=== PATIENT | male | born 1950 | race Caucasian/White ===

== ENCOUNTER → 2016-12-03 | Outpatient (CLI) | payer MEDICARE, BC, OTHER ==
[~2016-12-03] VITALS: Ht 170.2 cm; Wt 93.0 kg
[~2016-12-03] MED LIST: GLUC500C5 PO; LIDOCAINE 2% INJ 100 MG/5 ML SDV (FOR ANES.) As Ordered ONE; LIVA4TAB PO; MULTTAB PO; NS 1,000 ML IV SCH; OMEP40CA2 PO; PROPOFOL 200 MG/20 ML VIAL As Ordered ONE; VITA100037 PO; [UNRECOGNIZED DRUG - CODE] PO
--- NOTE | 2016-12-03 12:28 | ROOR ---
Patient Name: Kaushal Belcher Procedure Date: 12/03/2016 12:07 PM Date of : 1950 Age: 66 Room: [facility] Gender: Male Note Status: Finalized Procedure: Upper GI endoscopy + Biopsies Indications: Follow-up of Meza's esophagus Providers: Dung Hobbs MD Referring MD: Maegan Villafuerte MD Requesting Provider: Medicines: Monitored Anesthesia Care Complications: No immediate complications. Procedure: Pre-Anesthesia Assessment: - The heart rate, respiratory rate, oxygen saturations, blood pressure, adequacy of pulmonary ventilation, and response to care were monitored throughout the procedure. The Endoscope was introduced through the mouth, and advanced to the second part of duodenum. The upper GI endoscopy was accomplished without difficulty. The patient tolerated the procedure well. Findings: The Z-line was variable and was found 37 cm from the incisors. Multiple biopsies were obtained with cold forceps for evaluation to rule out Meza's Esophagus randomly at the gastroesophageal junction. A medium-sized hiatal hernia was present. No other significant abnormalities were identified in a careful examination of the stomach. The exam of the duodenum was otherwise normal. Impression: - Z-line variable, 37 cm from the incisors. - Medium-sized hiatal hernia. - Multiple biopsies were obtained at the gastroesophageal junction. - The examination was otherwise normal. Recommendation: - Patient has a contact number available for emergencies. The signs and symptoms of potential delayed complications were discussed with the patient. Return to normal activities tomorrow. Written discharge instructions were provided to the patient. - High fiber diet. - Discharge patient to home. - Follow an antireflux regimen. - Continue present medications. - Await pathology results. - Telephone GI clinic for pathology results in 1 week. - Return to referring physician. - The findings and recommendations were discussed with the patient's family. Dung Hobbs MD Dung Hobbs MD 12/03/2016 12:28:08 PM This report has been signed electronically. Number of Addenda: 0 Note Initiated On: 12/03/2016 12:07 PM Estimated Blood Loss: Estimated blood loss: none.
[2016-12-03 12:52] VITALS: BP 138/87
== END ==
LOC: M OPP 11:05
PROVIDERS: ATTEND Internal Medicine Gastroenterology
DX: Z09 Encounter for follow-up examination after completed treatment for conditions other than malignant neoplasm (principal); K22.70 Barrett's esophagus without dysplasia; K22.8 Other specified diseases of esophagus; K44.9 Diaphragmatic hernia without obstruction or gangrene; Z86.010 Personal history of colon polyps; E78.5 Hyperlipidemia, unspecified; K64.8 Other hemorrhoids; Z87.891 Personal history of nicotine dependence; Z79.899 Other long term (current) drug therapy

== ENCOUNTER 2018-05-14 06:34 | Day surgery (SDC) | payer MEDICARE, BC, OTHER ==
[2018-05-14] MEDS ORDERED: LIDOCAINE 2% INJ 100 MG/5 ML SDV (FOR ANES.) As Ordered (06:59)
[2018-05-14] MEDS ORDERED: PROPOFOL 200 MG/20 ML VIAL As Ordered (06:59)
[2018-05-14] MEDS ORDERED: fentaNYL 100 MCG/2 ML INJECTION (J3010) As Ordered (06:59)
[2018-05-14] MEDS: NS 1,000 ML IV (08:34)
== END 2018-05-14 08:35 | disposition home or self-care (01) ==
LOC: M OPP 06:34
DX: Z12.11 Encounter for screening for malignant neoplasm of colon (principal); Z86.010 Personal history of colon polyps; D12.2 Benign neoplasm of ascending colon; K64.0 First degree hemorrhoids; R12 Heartburn; K22.70 Barrett's esophagus without dysplasia; K44.9 Diaphragmatic hernia without obstruction or gangrene; E78.5 Hyperlipidemia, unspecified; K21.9 Gastro-esophageal reflux disease without esophagitis; M19.90 Unspecified osteoarthritis, unspecified site; M54.30 Sciatica, unspecified side; Z87.891 Personal history of nicotine dependence; Z79.899 Other long term (current) drug therapy
CPT/HCPCS: 45385

== ENCOUNTER → 2018-06-26 | Outpatient (REF) | payer MEDICARE, OTHER ==
[2018-06-26 14:19] LABS: PLATELET COUNT, AUTOMATED 217 10^3/uL (150-450)
[2018-06-26 14:29] LABS: INR 0.98; PROTHROMBIN TIME 13.1 SECONDS (12.1-14.4)
[2018-06-26 14:30] LABS: PARTIAL THROMBOPLASTIN TIME 25.7 SECONDS (25.4-37.6)
== END ==
LOC: M LABDRAW1 13:54
DX: Z01.812 Encounter for preprocedural laboratory examination (principal); Z79.01 Long term (current) use of anticoagulants
CPT/HCPCS: 85049

== ENCOUNTER → 2020-07-09 | Outpatient (CLI) | payer MEDICARE, OTHER ==
[~2020-07-09] MED LIST changes: +D31000TA2 PO; +GLUC1CAP10 PO; +IBUP200C25 PO; -LIDOCAINE 2% INJ 100 MG/5 ML SDV (FOR ANES.) As Ordered ONE; +MULT-90 PO; -NS 1,000 ML IV SCH; -OMEP40CA2 PO; +OMEP40CA97 PO; -PROPOFOL 200 MG/20 ML VIAL As Ordered ONE; -VITA100037 PO; +VITA100067 PO; +VITA100T59 PO
== END ==
LOC: M LABSMTC 08:05
PROVIDERS: ATTEND Anesthesiology
DX: Z01.818 Encounter for other preprocedural examination (principal); Z20.828 Contact with and (suspected) exposure to other viral communicable diseases
CPT/HCPCS: C9803; U0003

== ENCOUNTER 2020-07-14 06:21 | Day surgery (SDC) | payer MEDICARE, BC, OTHER ==
[~2020-07-14] VITALS: Ht 170.2 cm; Wt 94.3 kg
[~2020-07-14 06:21] MED LIST changes: +BALANCED SALT IRRIGATION SOLUTION 500ML BAG (FOR OR EYE MACHINE) As Ordered ONE; +DUOVISC (0.50ML VISCOAT/0.55ML PROVISC) OPHTH KIT As Ordered ONE; +POVIDONE-IODINE 5% OPHTH PREP SOL 30ML As Ordered ONE
[2020-07-14] MEDS ORDERED: CEFUROXIME 1MG/0.1ML INTRACAMERAL INJ As Ordered ONE (06:22)
[2020-07-14] MEDS ORDERED: BSS IRR 500ML/OMIDRIA 4ML IRR BAG (OR ONLY) (J1097 PER ML) As Ordered ONE (06:41)
[2020-07-14] MEDS ORDERED: MIDAZOLAM INJ 2MG/2ML VIAL (J2250 PER 1MG) As Ordered ONE (06:55)
[2020-07-14] MEDS ORDERED: fentaNYL 100 MCG/2 ML INJECTION (J3010) As Ordered ONE (06:58)
[2020-07-14] MEDS ORDERED: PHENYLEPHRINE 2.5% OPHTH SOL 2ML OD ONE (07:00)
[2020-07-14] MEDS ORDERED: TROPICAMIDE 1% OPHTH SOLN 2ML OD ONE (07:00)
[2020-07-14] MEDS ORDERED: OFLOXACIN 0.3 % (OCUFLOX) OPTH SOL 5ML OD ONE (07:00)
[2020-07-14] MEDS ORDERED: PROPARACAINE 0.5% OPHTH SOL 15ML OD ONE (07:00)
[2020-07-14] MEDS ORDERED: ACETYLCHOLINE OPHTH SOLN 1% 2ML (MIOCHOL-E) As Ordered ONE (07:11)
[2020-07-14 08:15] VITALS: BP 167/84
== END 2020-07-14 08:55 | disposition home or self-care (01) ==
LOC: M SDC 06:21
PROVIDERS: ATTEND Ophthalmology
DX: H25.11 Age-related nuclear cataract, right eye (principal); E78.5 Hyperlipidemia, unspecified; K21.9 Gastro-esophageal reflux disease without esophagitis; Z87.891 Personal history of nicotine dependence; Z79.899 Other long term (current) drug therapy
CPT/HCPCS: 66984; J2250; J3010; V2632

== ENCOUNTER → 2022-07-05 | Outpatient (CLI) | payer MEDICARE, BC, OTHER ==
[~2022-07-05] MED LIST changes: -BALANCED SALT IRRIGATION SOLUTION 500ML BAG (FOR OR EYE MACHINE) As Ordered ONE; -D31000TA2 PO; -DUOVISC (0.50ML VISCOAT/0.55ML PROVISC) OPHTH KIT As Ordered ONE; +OMEP40CA4 PO; -OMEP40CA97 PO; -POVIDONE-IODINE 5% OPHTH PREP SOL 30ML As Ordered ONE; +VITA100093 PO
[2022-07-05 15:34] LABS: ALBUMIN 3.7 GM/DL (3.2-5.2); BILIRUBIN,TOTAL 0.6 MG/DL (0.2-1.0); CALCIUM LEVEL 9.4 MG/DL (8.8-10.2); CHOLESTEROL RISK RATIO 2.08 (<5); CREATININE FOR GFR 1.34 MG/DL (0.70-1.30); GLOMERULAR FILTRATION RATE 55.8 (>42); POTASSIUM SERUM 4.8 MEQ/L (3.5-5.1); PROSTATIC SPECIFIC AG MONITOR 1.64 NG/ML (< 4.00); TOTAL PROTEIN 8.1 GM/DL (6.4-8.2)
== END ==
LOC: M PLALAB 09:43
PROVIDERS: ATTEND Nurse Practitioner Family
DX: Z00.00 Encounter for general adult medical examination without abnormal findings (principal); E78.2 Mixed hyperlipidemia; R97.20 Elevated prostate specific antigen [PSA]

== ENCOUNTER → 2022-07-25 | Outpatient (REF) | payer MEDICARE, BC, OTHER | LOC: M LAB REF 16:57 | PROVIDERS: ATTEND Nurse Practitioner Family | DX: N39.0 Urinary tract infection, site not specified (principal) ==

== ENCOUNTER → 2023-07-03 | Day surgery (SDC) | payer MEDICARE, BC, OTHER ==
[~2023-07-03] VITALS: Ht 170.2 cm; Wt 91.0 kg
[~2023-07-03] MED LIST changes: +LIDOCAINE 2% 100MG/5ML SDV (FOR ANES.) As Ordered ONE; +NS 1,000 ML IV ONE; +fentaNYL 100 MCG/2 ML INJECTION As Ordered ONE; +propofoL 200 MG/20 ML VIAL As Ordered ONE
[2023-07-04 15:00] VITALS: BP 99/56; TEMP 97.3; O2SAT 94
== END | disposition home or self-care (01) ==
LOC: M OPP 11:57
PROVIDERS: ATTEND Internal Medicine Gastroenterology
DX: Z12.11 Encounter for screening for malignant neoplasm of colon (principal); Z86.010 Personal history of colon polyps; K63.5 Polyp of colon; K64.0 First degree hemorrhoids; K22.89 Other specified disease of esophagus; R12 Heartburn; Z79.1 Long term (current) use of non-steroidal anti-inflammatories (NSAID); Z79.899 Other long term (current) drug therapy
CPT/HCPCS: 43239; 45380; 88305; J3010

== ENCOUNTER → 2023-07-15 | Outpatient (CLI) | payer MEDICARE, BC, OTHER ==
[~2023-07-15] MED LIST changes: -LIDOCAINE 2% 100MG/5ML SDV (FOR ANES.) As Ordered ONE; -NS 1,000 ML IV ONE; -fentaNYL 100 MCG/2 ML INJECTION As Ordered ONE; -propofoL 200 MG/20 ML VIAL As Ordered ONE
[2023-07-15 13:44] LABS: ALBUMIN 3.8 G/DL (3.2-5.2); ALKALINE PHOSPHATASE 57 U/L (46-116); ALT/SGPT 118 U/L (7.0-40); AST/SGOT 67 U/L (<34); BILIRUBIN,TOTAL 0.6 MG/DL (0.3-1.2); BLOOD UREA NITROGEN 17 MG/DL (9-23); CALCIUM LEVEL 9.4 MG/DL (8.3-10.6); CARBON DIOXIDE LEVEL 28 MMOL/L (20-31); CHLORIDE LEVEL 106 MMOL/L (98-107); CHOLESTEROL LEVEL 195 MG/DL (<200); CHOLESTEROL RISK RATIO 2.41 (<5); CREATININE FOR GFR 1.15 MG/DL (0.70-1.30); GLOMERULAR FILTRATION RATE > 60.0 (>42); GLUCOSE, FASTING 103 MG/DL (74-106); HDL CHOLESTEROL 80.6 MG/DL (>40); NON-HDL-C 114.4 MG/DL; POTASSIUM SERUM 4.8 MMOL/L (3.5-5.1); SODIUM LEVEL 143 MMOL/L (136-145); TOTAL PROTEIN 7.6 G/DL (5.7-8.2); TRIGLYCERIDES LEVEL 67 MG/DL (<150)
== END ==
LOC: M PLALAB 09:21
PROVIDERS: ATTEND Nurse Practitioner Family
DX: Z00.00 Encounter for general adult medical examination without abnormal findings (principal); E78.00 Pure hypercholesterolemia, unspecified

== ENCOUNTER → 2023-07-31 | Outpatient (CLI) | payer MEDICARE, BC, OTHER ==
[2023-07-31 14:04] LABS: APPEARANCE, URINE CLEAR (CLEAR); BACTERIA, URINE AUTO NEGATIVE (NEGATIVE); BILIRUBIN, URINE AUTO NEGATIVE (NEGATIVE); BLOOD, URINE BLOOD NEGATIVE (NEGATIVE); COLOR, URINE YELLOW (YELLOW); GLUCOSE, URINE (UA) AUTO NEGATIVE (NEGATIVE); KETONE, URINE AUTO NEGATIVE (NEGATIVE); LEUKOCYTE ESTERASE, URINE AUTO NEGATIVE (NEGATIVE); MUCUS, URINE SMALL (NEGATIVE); NITRITE, URINE AUTO NEGATIVE (NEGATIVE); PROTEIN, URINE AUTO NEGATIVE (NEGATIVE); RBC, URINE AUTO 1 /HPF (0-3); SPECIFIC GRAVITY URINE AUTO 1.015 (1.002-1.035); SQUAMOUS EPITHELIAL CELL UR AU 0 /HPF (0-6); UROBILINOGEN, URINE AUTO 0.2 mg/dL (0.0-2.0); WBC, URINE AUTO 2 /HPF (0-3)
== END ==
LOC: M PLALAB 11:10
PROVIDERS: ATTEND Nurse Practitioner Family
DX: R35.0 Frequency of micturition (principal); Z12.5 Encounter for screening for malignant neoplasm of prostate
CPT/HCPCS: 36415; 81001; 87086; G0103

== ENCOUNTER → 2024-07-16 | Outpatient (CLI) | payer MEDICARE, BC ==
[2024-07-16 13:20] LABS: ALKALINE PHOSPHATASE 62 U/L (40-129); ALT/SGPT 109 U/L (7.0-40); AST/SGOT 56 U/L (<34); BILIRUBIN,TOTAL 0.8 MG/DL (0.3-1.2); BLOOD UREA NITROGEN 18 MG/DL (9-23); CALCIUM LEVEL 10.1 MG/DL (8.3-10.6); CARBON DIOXIDE LEVEL 30 MMOL/L (20-31); CHLORIDE LEVEL 104 MMOL/L (98-107); CHOLESTEROL LEVEL 223 MG/DL (<200); CHOLESTEROL RISK RATIO 2.33 (<5); CREATININE FOR GFR 1.14 MG/DL (0.70-1.30); GLOMERULAR FILTRATION RATE > 60.0 (>42); GLUCOSE, FASTING 108 MG/DL (74-106); HDL CHOLESTEROL 95.4 MG/DL (>40); LDL CHOLESTEROL 112.2 MG/DL (<100); NON-HDL-C 127.6 MG/DL; POTASSIUM SERUM 5.1 MMOL/L (3.5-5.1); PSA SCREENING 1.35 NG/ML (< 4.00); SODIUM LEVEL 140 MMOL/L (136-145); TOTAL PROTEIN 8.4 G/DL (5.7-8.2); TRIGLYCERIDES LEVEL 77 MG/DL (<150)
== END ==
LOC: M PLALAB 09:32
PROVIDERS: ATTEND Nurse Practitioner Family
DX: E78.2 Mixed hyperlipidemia (principal); Z12.5 Encounter for screening for malignant neoplasm of prostate
CPT/HCPCS: 36415; 80053; 80061; G0103

== ENCOUNTER → 2024-08-04 | Outpatient (CLI) | payer MEDICARE, BC ==
[2024-08-04 14:29] LABS: C REACTIVE PROTEIN QUANTITATIV < 0.50 MG/DL (<1.0); RHEUMATOID FACTOR QUANT < 3.5 IU/ML (<14)
== END ==
LOC: M PLALAB 11:16
PROVIDERS: ATTEND Nurse Practitioner Family
DX: M19.042 Primary osteoarthritis, left hand (principal)

== ENCOUNTER → 2025-01-01 | Outpatient (CLI) | payer MEDICARE, BC | LOC: M PLAIMG 12:36 | PROVIDERS: ATTEND Nurse Practitioner Family | DX: R06.02 Shortness of breath (principal); M25.561 Pain in right knee ==

== ENCOUNTER → 2025-06-29 | Outpatient (CLI) | payer MEDICARE, BC ==
[2025-06-29 11:31] LABS: PSA SCREENING 2.03 NG/ML (< 4.00)
[2025-06-29 11:34] LABS: ALT/SGPT 103.0 U/L (7.0-40); AST/SGOT 60.0 U/L (<34); CALCIUM LEVEL 10.0 MG/DL (8.3-10.6); CARBON DIOXIDE LEVEL 27.0 MMOL/L (20-31); CHLORIDE LEVEL 105.0 MMOL/L (98-107); CHOLESTEROL LEVEL 194.0 MG/DL (<200); CHOLESTEROL RISK RATIO 2.38 (<5); CREATININE FOR GFR 1.26 MG/DL (0.70-1.30); GLOMERULAR FILTRATION RATE 59.5 (>42); LDL CHOLESTEROL 93.3 MG/DL (<100); NON-HDL-C 112.7 MG/DL; POTASSIUM SERUM 4.8 MMOL/L (3.5-5.1); SODIUM LEVEL 141.0 MMOL/L (136-145); TRIGLYCERIDES LEVEL 97.0 MG/DL (<150)
== END ==
LOC: M PLALAB 09:21
PROVIDERS: ATTEND Nurse Practitioner Family
DX: Z00.00 Encounter for general adult medical examination without abnormal findings (principal); E78.2 Mixed hyperlipidemia; Z12.5 Encounter for screening for malignant neoplasm of prostate
CPT/HCPCS: 36415; 80053; 80061; G0103